=== PATIENT | female | born 2000 | race Caucasian/White ===

== ENCOUNTER 2023-12-01 17:50 | Emergency (ER) | payer OTHER, SELFPAY ==
[2023-12-01 18:00] VITALS: BP 147/106
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
[2023-12-01 19:13] LABS: Glucose - Point of Care 100 mg/dl (70-99)
[2023-12-01 19:58] VITALS: BP 146/105
[2023-12-01 20:00] VITALS: BP 146/105
== END 2023-12-01 20:00 | disposition home or self-care (01) ==
LOC: EMR 17:50
PROVIDERS: EMERGENCY PHYSICIAN Emergency Medicine
DX: S06.0XAA Concussion with loss of consciousness status unknown, initial encounter (principal); V89.2XXA Person injured in unspecified motor-vehicle accident, traffic, initial encounter; R03.0 Elevated blood-pressure reading, without diagnosis of hypertension
CPT/HCPCS: 99284; 70450; 82962; 93005

== ENCOUNTER 2025-06-02 08:46 | Emergency (ER) | payer SELFPAY ==
[2025-06-02 08:48] VITALS: BP 170/117
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
[2025-06-02] MEDS: ADACEL 0.5 ML IM (09:54)
[2025-06-02 10:03] VITALS: BP 148/100
== END 2025-06-02 10:18 | disposition home or self-care (01) ==
LOC: EMR 08:46
PROVIDERS: EMERGENCY PHYSICIAN Emergency Medicine; FAMILY PHYSICIAN Family Medicine
DX: S61.210A Laceration without foreign body of right index finger without damage to nail, initial encounter (principal); W27.5XXA Contact with paper-cutter, initial encounter; Y92.89 Other specified places as the place of occurrence of the external cause; Y99.0 Civilian activity done for income or pay; Z23 Encounter for immunization
CPT/HCPCS: 90471; 12001; 99282; 90715

== ENCOUNTER 2025-06-11 10:02 | Emergency (ER) | payer SELFPAY ==
[2025-06-11 10:05] VITALS: BP 156/100
--- NOTE | 2025-06-11 10:47 | ED.GENMED ---
History of Present Illness
General
Chief Complaint: Wound Check/Suture Removal
Time Seen by Provider: 06/11/25 10:23
History of Present Illness
History of Present Illness:
24-year-old female without significant past medical history presenting for suture removal. Patient had a laceration to her right index finger, the 12th with 3 sutures placed. Denies any complications after suture placement such as drainage,
redness, pain. Denies any additional acute medical complaints
Past History
Past History
ED Past Medical History: None
ED Past Surgical History: None
Social History
Tobacco: Non-smoker
Alcohol: None
Drug: None
Personal: Single
Living: with family
Employment: Employed
Phy Exam
Physical Exam
Physical Exam:
General: Well-appearing, no clinical signs of dehydration, nontoxic and in no acute distress
HEENT: protecting airway
Neck: appears supple
CV: Normal heart rate
Resp: No accessory muscle use, no increased work of breathing
Abd: no distension
Extremities: No deformities, no swelling. Well-healing laceration to the right index finger with [address] Wound edges are appropriately healing.
Neuro: alert, no focal neurologic deficit
: deferred
Rectal: deferred
Psych: Normal affect
Skin: Intact
Course
Vital Signs
Initial and Last Documented VS:
Initial Vital Signs
Temp Pulse Resp BP Pulse Ox
97.8 F 91 16 156/100 99
06/11/25 10:05 06/11/25 10:05 06/11/25 10:05 06/11/25 10:05 06/11/25 10:05
Last Documented Vital Signs
Temp Pulse Resp BP Pulse Ox
97.8 F 91 16 156/100 99
06/11/25 10:05 06/11/25 10:05 06/11/25 10:05 06/11/25 10:05 06/11/25 10:05
MDM/Problems Addressed
MDM/Problems Addressed:
24-year-old female presenting for suture removal. Vital signs are normal. Wound appears to be appropriately healing and 3 sutures were removed without incident. Advised continued supportive therapy for healing. Return precautions discussed
*Pulse Oximetry
SaO2: 99
Oxygen Mode of Delivery: Room air
Patient hypoxic: no
*Critical Care Note
Total Time (30-74mins, 75-104mins- exclusive of procedures): Not Applicable
ED Attending Note
-
Portions of this chart may have been created with voice recognition software.� Occasional wrong word or��sound alike� substitutions may have occurred due to the inherent limitations of voice recognition software.
Discharge Plan
Departure
Referrals:
Polo Newberry MD [Family Provider, [facility]]
Interventions
Interventions:
*Risk Screen - Suicide Last Done: 06/11/25 10:05
*General Assessment Last Done: 06/11/25 10:27
*Neglect/Abuse Screening Last Done: 06/11/25 10:05
*ED- Fall Risk Assessment Last Done: 06/11/25 10:27
*ED COVID-19 Vaccine History Last Done: 06/11/25 10:27
ED-Skin Assessment Last Done: 06/11/25 10:33
Discharge Date and Time
Print Language: TURKMEN
[2025-06-11 10:52] VITALS: BP 145/96
--- NOTE | 2025-06-11 10:52 | EDRN ---
Education provided re- BP monitoring . Pt reports recent issues with anxiety and its ' been high'. Encouraged to check weekly ( relaxed setting) , record and follow up with PCP
== END 2025-06-11 11:02 | disposition home or self-care (01) ==
LOC: EMR 10:02
PROVIDERS: EMERGENCY PHYSICIAN Student in an Organized Health Care Education/Training Program; FAMILY PHYSICIAN Family Medicine
DX: S61.210D Laceration without foreign body of right index finger without damage to nail, subsequent encounter (principal); X58.XXXD Exposure to other specified factors, subsequent encounter
CPT/HCPCS: 99281